=== PATIENT | female | born 1980 | race African-American/Black ===

== ENCOUNTER 2021-10-05 14:42 | Observation (INO) ==
[2021-10-05 17:39] LABS: Basophils % 0.1 % (0.0-0.8); Eosinophils % 0.1 % (0.00-10.9); Hematocrit 39.4 VOL% (35.7-47.0); Hemoglobin 12.4 GM/DL (12.0-16.0); Immature Granulocytes % 0.6 %; Immature Granulocytes Absolute 0.04 #; Lymphocytes # 2.2 10*3/uL (1.4-4.0); Lymphocytes % 32.3 % (21.3-54.2); Mean Corpuscular HGB Conc 31.5 GM/DL (32-36); Mean Corpuscular Volume 91.8 FL (87-102); Mean Platelet Volume 11.2 FL (9.6-12.0); Monocytes % 7.6 % (1.7-12.7); Neutrophils % 59.3 % (38.7-73.9); Platelet Count 238 T/CUMM (130-400); Red Blood Count 4.29 MC/CUMM (3.8-5.5); Red Cell Distribution Width 17.2 % (9.3-17.3); White Blood Count 6.7 T/CUMM (4-12)
[2021-10-05] MEDS ORDERED: KETOROLAC 30 MG/1 ML VIAL IV STA (17:47)
[2021-10-05 18:02] LABS: Alanine Aminotransferase < 9 U/L (13-56); Albumin 2.2 G/DL (3.4-5.0); Alkaline Phosphatase 72 U/L (45-117); Aspartate Amino Transferase 15 U/L (0-37); Blood Urea Nitrogen 16 MG/DL (7-18); Calcium 8.6 MG/DL (8.5-10.1); Carbon Dioxide 25 MMOL/L (21-32); Estimated Glom Filtration Rate 77 ML/MIN; Glucose 75 MG/DL (74-106); Potassium 3.8 MMOL/L (3.5-5.1); Sodium 143 MMOL/L (136-145); Total Protein 6.3 G/DL (6.4-8.2)
[2021-10-05 18:11] LABS: INR 0.9; PT Patient Result 10.1 SECS (10.5-12.0); Partial Thromboplastin Time 28.4 SECS (23.8-32.1)
[2021-10-05] MEDS ORDERED: FUROSEMIDE 100 MG/10 ML VIAL IV STA (19:59)
[2021-10-05] MEDS ORDERED: GLUCAGON 1 MG VIAL IM PRN (20:39)
[2021-10-05] MEDS ORDERED: DEXTROSE 10% 250 ML BAG IV PRN (20:39)
[2021-10-05] MEDS ORDERED: traMADol 50 MG TABLET PO PRN (20:41)
[2021-10-05] MEDS ORDERED: ONDANSETRON 4 MG/2 ML VIAL IV PRN (20:41)
[2021-10-05] MEDS ORDERED: hydrALAZINE 20 MG/1 ML VIAL IV PRN (20:41)
[2021-10-05] MEDS ORDERED: NITROGLYCERIN SL 0.4 MG TABLET SL PRN (20:41)
[2021-10-05] MEDS ORDERED: ACETAMINOPHEN 325 MG TABLET PO PRN (20:41)
[2021-10-05] MEDS ORDERED: ASPIRIN CHEW 81 MG TABLET PO ONE (20:41)
[2021-10-05] MEDS ORDERED: predniSONE 10 MG TABLET PO PRN (20:55)
[2021-10-05] MEDS ORDERED: ENOXAPARIN 80 MG/0.8 ML SYRINGE SUBCUT ONE (21:30)
[2021-10-05] MEDS: DOCUSATE SODIUM 100 MG CAPSULE PO SCH (21:53)
[2021-10-05] MEDS: carvediloL 3.125 MG TABLET PO SCH (21:53)
[2021-10-06 05:26] LABS: Basophils % 0.2 % (0.0-0.8); Hematocrit 39.1 VOL% (35.7-47.0); Immature Granulocytes % 0.4 %; Immature Granulocytes Absolute 0.02 #; Lymphocytes # 1.3 10*3/uL (1.4-4.0); Lymphocytes % 23.9 % (21.3-54.2); Mean Corpuscular HGB Conc 30.7 GM/DL (32-36); Mean Corpuscular Volume 92.9 FL (87-102); Mean Platelet Volume 12.1 FL (9.6-12.0); Monocytes % 8.8 % (1.7-12.7); Neutrophils % 66.7 % (38.7-73.9); Platelet Count 203 T/CUMM (130-400); Red Blood Count 4.21 MC/CUMM (3.8-5.5); Red Cell Distribution Width 17.2 % (9.3-17.3); White Blood Count 5.4 T/CUMM (4-12)
[2021-10-06 05:49] LABS: Calcium 8.2 MG/DL (8.5-10.1); Osmolality,Calculated 286.8 MOS/KG (273-304); Potassium 3.7 MMOL/L (3.5-5.1); Risk Ratio 4.15; Thyroid Stimulating Hormone 3.41 uIU/ml (0.358-3.74); VLDL Cholesterol 34.2 MG/DL
[2021-10-06 06:37] LABS: Anisocytosis 2+; Band Neutrophils 8 % (0-10); Lymphocytes 24 % (20-55); Macrocytosis 1+; Ovalocytes Few; Platelet Estimate Normal; Segmented Neutrophils 60 % (50-85); Tear Drop Cells Few; Total Cells Counted 100
[2021-10-06] MEDS ORDERED: SACUBITRIL/VALSARTAN 49-51 MG TABLET PO SCH (09:00)
[2021-10-06] MEDS ORDERED: FUROSEMIDE 40 MG/4 ML VIAL IV SCH (09:00)
[2021-10-06] MEDS: PANTOPRAZOLE 40 MG TABLET PO SCH (10:54)
[2021-10-06] MEDS: ASPIRIN EC 325 MG TABLET PO SCH (10:54)
[2021-10-06] MEDS: DOCUSATE SODIUM 100 MG CAPSULE PO SCH ×2 (10:54→21:33)
[2021-10-06] MEDS: SPIRONOLACTONE 25 MG TABLET PO SCH (10:54)
[2021-10-06] MEDS: predniSONE 5 MG TABLET PO SCH ×2 (10:54→21:30)
[2021-10-06] MEDS: carvediloL 3.125 MG TABLET PO SCH ×2 (10:55→21:30)
[2021-10-06] MEDS: MYCOPHENOLATE MOFETIL 250 MG CAPSULE PO SCH ×3 (10:55→21:30)
[2021-10-06] MEDS: FUROSEMIDE 40 MG/4 ML VIAL IV SCH (15:50)
[2021-10-06] MEDS ORDERED: ATORVASTATIN 40 MG TABLET PO SCH (21:00)
[2021-10-06] MEDS ORDERED: ENOXAPARIN 40 MG/0.4 ML SYRINGE SUBCUT SCH (21:00)
[2021-10-06] MEDS: SACUBITRIL/VALSARTAN 49-51 MG TABLET PO SCH (21:30)
[2021-10-07 05:47] LABS: Basophils % 0.2 % (0.0-0.8); Hematocrit 42.2 VOL% (35.7-47.0); Hemoglobin 13.2 GM/DL (12.0-16.0); Immature Granulocytes % 0.4 %; Immature Granulocytes Absolute 0.02 #; Lymphocytes # 1.3 10*3/uL (1.4-4.0); Lymphocytes % 27.8 % (21.3-54.2); Mean Corpuscular HGB Conc 31.3 GM/DL (32-36); Mean Corpuscular Volume 93.2 FL (87-102); Mean Platelet Volume 11.9 FL (9.6-12.0); Monocytes % 10.2 % (1.7-12.7); Neutrophils % 61.4 % (38.7-73.9); Platelet Count 227 T/CUMM (130-400); Red Blood Count 4.53 MC/CUMM (3.8-5.5); Red Cell Distribution Width 16.9 % (9.3-17.3); White Blood Count 4.8 T/CUMM (4-12)
[2021-10-07 06:16] LABS: Calcium 8.8 MG/DL (8.5-10.1); Osmolality,Calculated 271.1 MOS/KG (273-304); Potassium 4.7 MMOL/L (3.5-5.1)
[2021-10-07] MEDS: MYCOPHENOLATE MOFETIL 250 MG CAPSULE PO SCH (09:35)
[2021-10-07] MEDS: carvediloL 3.125 MG TABLET PO SCH (09:36)
[2021-10-07] MEDS: ASPIRIN EC 325 MG TABLET PO SCH (09:36)
[2021-10-07] MEDS: SACUBITRIL/VALSARTAN 49-51 MG TABLET PO SCH (09:37)
[2021-10-07] MEDS: predniSONE 5 MG TABLET PO SCH (09:37)
[2021-10-07] MEDS: DOCUSATE SODIUM 100 MG CAPSULE PO SCH (09:37)
[2021-10-07] MEDS: PANTOPRAZOLE 40 MG TABLET PO SCH (09:37)
[2021-10-07] MEDS: SPIRONOLACTONE 25 MG TABLET PO SCH (09:37)
[2021-10-07] MEDS: FUROSEMIDE 40 MG/4 ML VIAL IV SCH (09:41)
[2021-10-07 12:04] VITALS: BP 115/90
== END 2021-10-07 12:45 | disposition home or self-care (01) ==
LOC: N.ED 14:42 → N.EDINP 14:42 → SUATTDRO 20:39 → N.5E 23:20
PROVIDERS: ADMIT Internal Medicine; ATTEND Internal Medicine